=== PATIENT | male | born 1955 | race Hispanic/Latino ===

== ENCOUNTER 2022-06-27 13:47 | Emergency (ER) | payer MEDICARE, OTHER ==
[~2022-06-27] VITALS: Ht 165.1 cm; Wt 72.6 kg
[2022-06-27 14:16] LABS: BASOPHILS % (AUTO) 0.5 % (0.0-5.0); EOSINOPHILS % (AUTO) 0.3 % (0.0-8.0); HEMATOCRIT 31.2 % (42-54); LYMPHOCYTES % (AUTO) 15.1 % (21.0-51.0); MEAN CORPUSCULAR HEMOGLOBIN 29.1 pg (27.0-33.0); MEAN CORPUSCULAR HGB CONC 32.7 g/dL (32.0-36.0); MEAN CORPUSCULAR VOLUME 89.1 fL (79-99); MONOCYTES % (AUTO) 11.7 % (3.0-13.0); NEUTROPHILS % (AUTO) 66.6 % (40.0-77.0); PLATELET COUNT (AUTO) 386 K/uL (130-400); RED CELL DISTRIBUTION WIDTH 14.2 % (11.0-15.5); WHITE BLOOD COUNT (AUTO) 10.6 K/uL (4.8-10.8)
[2022-06-27 14:26] LABS: CREATININE 1.5 mg/dL (0.5-1.5); POTASSIUM 4.2 mmol/L (3.5-5.1)
[2022-06-27 14:28] LABS: INR 1.09 (0.85-1.15); PROTHROMBIN TIME 11.8 SEC (9.6-11.6)
[2022-06-27 14:30] LABS: PARTIAL THROMBOPLASTIN TIME 28.2 SEC (26.3-35.5)
[2022-06-27 14:38] LABS: ALBUMIN 2.6 g/dL (3.5-5.0); TOTAL PROTEIN, SERUM 8.2 g/dL (6.0-8.3)
[2022-06-27 15:04] LABS: APPEARANCE,URINE CLEAR (CLEAR); BILIRUBIN,URINE NEGATIVE (NEGATIVE); COLOR,URINE YELLOW (YELLOW); GLUCOSE, URINE (UA) NEGATIVE (NEGATIVE); KETONES,URINE NEGATIVE (NEGATIVE); LEUKOCYTE ESTERASE ,URINE NEGATIVE (NEGATIVE); NITRATE,URINE NEGATIVE (NEGATIVE); OCCULT BLOOD,URINE SMALL (NEGATIVE); PH,URINE 5.5 (5.0-8.0); PROTEIN,URINE 30 mg/dL (NEGATIVE); UROBILINOGEN,URINE 0.2 mg/dL (0.2-1.0)
[2022-06-27 15:18] LABS: AMORPHOUS SEDIMENT,UR Rare /LPF (None Seen); BACTERIA,URINE Few /HPF (None Seen); RBC,URINE 0-1 /HPF (0-1); SQUAMOUS EPITHELIAL CELL,UR Rare /HPF (0-2)
[2022-06-27] MEDS ORDERED: 0.9%NACL 1000ML 1,000 ML IV ONE (16:00)
[2022-06-27] MEDS ORDERED: NAPR375T6 PO (17:53)
[2022-06-27] MEDS ORDERED: METH-662 PO (17:53)
[2022-06-27 19:06] VITALS: BP 134/88
== END 2022-06-27 19:07 | disposition home or self-care (01) ==
LOC: EDH 13:47
DX: S39.012A Strain of muscle, fascia and tendon of lower back, initial encounter (principal); E86.0 Dehydration; Z20.822 Contact with and (suspected) exposure to COVID-19; E78.00 Pure hypercholesterolemia, unspecified; I10 Essential (primary) hypertension; Z90.49 Acquired absence of other specified parts of digestive tract; Z87.440 Personal history of urinary (tract) infections; Z85.46 Personal history of malignant neoplasm of prostate; X58.XXXA Exposure to other specified factors, initial encounter; Y93.89 Activity, other specified; Y92.89 Other specified places as the place of occurrence of the external cause; Y99.8 Other external cause status
CPT/HCPCS: 99284; 96360; 72131; 87635; 96361; 82550; 84484; 80053; 85025; 85610; 85730; 87040 ×2; 87088; 87804 ×2; 83605; 81001; 36415; C9803; J7030

== ENCOUNTER 2023-07-21 16:01 | Inpatient (IN) | payer OTHER ==
[~2023-07-21] VITALS: Ht 165.1 cm; Wt 62.1 kg
[~2023-07-21 16:01] MED LIST: AMLO5TAB4 PO; ATOR40TA69 PO; BICA50TA49 PO; METO25 PO; PANT40TA PO; PERCT PO; PRED10TA23 PO; TAMS-1 PO
[2023-07-21 16:59] LABS: BASOPHILS # (AUTO) 0.02 K/uL (0.00-0.20); BASOPHILS % (AUTO) 0.2 % (0.0-5.0); EOSINOPHILS # (AUTO) 0.05 K/uL (0.00-0.70); EOSINOPHILS % (AUTO) 0.5 % (0.0-8.0); HEMATOCRIT 25.1 % (42-54); LYMPHOCYTES # (AUTO) 1.3 K/uL (1.0-4.8); LYMPHOCYTES % (AUTO) 13.3 % (21.0-51.0); MEAN CORPUSCULAR HEMOGLOBIN 28.4 pg (27.0-33.0); MEAN CORPUSCULAR HGB CONC 31.5 g/dL (32.0-36.0); MEAN CORPUSCULAR VOLUME 90.3 fL (79-99); MONOCYTES # (AUTO) 0.7 K/uL (0.1-1.0); MONOCYTES % (AUTO) 7.6 % (3.0-13.0); NEUTROPHILS % (AUTO) 74.1 % (40.0-77.0); NUCLEATED RED BLOOD CELLS 0.2 % (0.0-0.19); PLATELET COUNT (AUTO) 313 K/uL (130-400); RED BLOOD CELL COUNT(AUTO) 2.78 MIL/uL (4.50-6.20); RED CELL DISTRIBUTION WIDTH 16.7 % (11.0-15.5); WHITE BLOOD COUNT (AUTO) 9.4 K/uL (4.8-10.8)
[2023-07-21] MEDS ORDERED: LACTATED RINGERS 1000ML 1,000 ML IV ONE (17:00)
[2023-07-21] MEDS ORDERED: MORPHINE 4 MG SYG IVP ONE (17:00)
[2023-07-21] MEDS ORDERED: ONDANSETRON 4MG INJ IVP ONE (17:00)
[2023-07-21 17:16] LABS: ALBUMIN 2.7 g/dL (3.5-5.0); BILIRUBIN,TOTAL 0.4 mg/dL (0.2-1.0); TOTAL PROTEIN, SERUM 7.5 g/dL (6.0-8.3)
[2023-07-21 17:43] LABS: APPEARANCE,URINE CLEAR (CLEAR); BILIRUBIN,URINE NEGATIVE (NEGATIVE); COLOR,URINE YELLOW (YELLOW); GLUCOSE, URINE (UA) NEGATIVE (NEGATIVE); KETONES,URINE NEGATIVE (NEGATIVE); LEUKOCYTE ESTERASE ,URINE NEGATIVE Leu/uL (NEGATIVE); NITRATE,URINE NEGATIVE (NEGATIVE); OCCULT BLOOD,URINE NEGATIVE (NEGATIVE); PH,URINE 5.5 (5.0-8.0); PROTEIN,URINE 50 mg/dL (NEGATIVE); UROBILINOGEN,URINE 0.2 mg/dL (0.2-1.0)
[2023-07-21 17:44] LABS: ADD UA MICROSCOPIC YES
[2023-07-21 17:46] LABS: BACTERIA,URINE RARE /HPF (None Seen); MUCUS,URINE RARE LPF (None Seen); RBC,URINE 0-1 /HPF (0-1); SQUAMOUS EPITHELIAL CELL,UR RARE /HPF (0-2)
[2023-07-21] MEDS ORDERED: IOHEXOL 350 MG/ML 100ML INFUS..BTL IV ONE (17:57)
[2023-07-21] MEDS: M.V.I. IV [ADULT] 10 ML, FOLIC ACID 1 MG, THIAMINE HCL 100 MG in 0.9%NACL 1000ML 1,000 ML IV SCH (21:08)
[2023-07-21] MEDS ORDERED: ACETAMINOPHEN 325 MG TAB PO PRN ×2 (21:30)
[2023-07-21] MEDS: ONDANSETRON 4MG INJ IV PRN (21:39)
[2023-07-21] MEDS: MORPHINE 4 MG SYG IV PRN (21:39)
[2023-07-21] MEDS: LACTATED RINGERS 1000ML 1,000 ML IV SCH (21:40)
[2023-07-21 23:55] VITALS: BP 166/102; PULSE 123; RESP 20
[2023-07-22] VITALS (8 sets, daily range): BP systolic 134–233; BP diastolic 81–132; PULSE 126–163; RESP 20; O2SAT 99
[2023-07-22] MEDS: MORPHINE 2 MG SYG IV PRN ×2 (01:35→15:56)
[2023-07-22] MEDS ORDERED: PRED5TAB44 PO (02:33)
[2023-07-22] MEDS ORDERED: ENZA80TA PO (02:33)
[2023-07-22] MEDS ORDERED: OXYC-26 PO (02:33)
[2023-07-22] MEDS ORDERED: MORP20SO37 PO (02:33)
[2023-07-22] MEDS ORDERED: METO25TA6 PO (02:33)
[2023-07-22] MEDS: MORPHINE 4 MG SYG IV PRN ×2 (03:33→09:52)
[2023-07-22 05:36] LABS: BASOPHILS # (AUTO) 0.02 K/uL (0.00-0.20); BASOPHILS % (AUTO) 0.2 % (0.0-5.0); EOSINOPHILS # (AUTO) 0.08 K/uL (0.00-0.70); HEMATOCRIT 23.8 % (42-54); IMMATURE GRANULOCYTE ABSOLUTE 0.39 K/uL (0-1); LYMPHOCYTES # (AUTO) 1.2 K/uL (1.0-4.8); LYMPHOCYTES % (AUTO) 14.9 % (21.0-51.0); MEAN CORPUSCULAR HEMOGLOBIN 28.6 pg (27.0-33.0); MEAN CORPUSCULAR HGB CONC 30.3 g/dL (32.0-36.0); MEAN CORPUSCULAR VOLUME 94.4 fL (79-99); MONOCYTES # (AUTO) 0.7 K/uL (0.1-1.0); MONOCYTES % (AUTO) 8.3 % (3.0-13.0); NEUTROPHILS # (AUTO) 5.7 K/uL (1.8-7.7); NEUTROPHILS % (AUTO) 70.8 % (40.0-77.0); PLATELET COUNT (AUTO) 231 K/uL (130-400); RED BLOOD CELL COUNT(AUTO) 2.52 MIL/uL (4.50-6.20); RED CELL DISTRIBUTION WIDTH 16.5 % (11.0-15.5); WHITE BLOOD COUNT (AUTO) 8.1 K/uL (4.8-10.8)
[2023-07-22 05:56] LABS: CREATININE 0.7 mg/dL (0.5-1.5); MAGNESIUM 1.9 mg/dL (1.80-2.40); PHOSPHORUS 3.7 mg/dL (2.5-4.9); POTASSIUM 4.9 mmol/L (3.5-5.1)
[2023-07-22] MEDS ORDERED: ENOXAPARIN SODIUM 40 MG/0.4 ML SYRINGE SQ SCH (09:00)
[2023-07-22] MEDS: FAMOTIDINE 20MG TAB PO SCH (09:51)
[2023-07-22] MEDS: LACTATED RINGERS 1000ML 1,000 ML IV SCH (10:50)
[2023-07-22] MEDS: M.V.I. IV [ADULT] 10 ML, FOLIC ACID 1 MG, THIAMINE HCL 100 MG in 0.9%NACL 1000ML 1,000 ML IV SCH (11:22)
[2023-07-22] MEDS ORDERED: HYDROMORPHONE 1 MG INJ IVP ONE (16:30)
[2023-07-22] MEDS: ONDANSETRON 4MG INJ IV PRN ×2 (16:57→20:17)
[2023-07-22] MEDS ORDERED: M.V.I. IV [ADULT] 10 ML, FOLIC ACID 1 MG, THIAMINE HCL 100 MG in 0.9%NACL 1000ML 1,000 ML IV SCH (17:00)
[2023-07-22] MEDS ORDERED: FENTANYL 50 MCG/HR PATCH TD SCH (18:30)
[2023-07-22] MEDS ORDERED: IOHEXOL-350 75 ML VIAL IV ONE (19:25)
[2023-07-22] MEDS: METOPROLOL TARTRATE 25 MG TAB PO SCH (20:17)
[2023-07-22] MEDS: HYDROMORPHONE 1 MG INJ IVP PRN (20:18)
[2023-07-22] MEDS ORDERED: PREDNISONE 5 MG TABLET PO SCH (21:00)
[2023-07-22] MEDS ORDERED: NON-FORMULARY MEDICATION 1 EACH (Prednisone 5 MG) PO SCH (21:00)
[2023-07-22] MEDS: DEXAMETHASONE SOD PHOSPHATE 4 MG/ML 1ML VIAL IV SCH (21:43)
[2023-07-23] VITALS (7 sets, daily range): BP systolic 137–170; BP diastolic 88–114; PULSE 113–125; RESP 19–20; O2SAT 99
[2023-07-23] MEDS: LACTATED RINGERS 1000ML 1,000 ML IV SCH (00:10)
[2023-07-23] MEDS: HYDROMORPHONE 1 MG INJ IVP PRN ×6 (00:14→23:21)
[2023-07-23 05:28] LABS: HEMATOCRIT 23.3 % (42-54); MEAN CORPUSCULAR HEMOGLOBIN 28.5 pg (27.0-33.0); MEAN CORPUSCULAR HGB CONC 30.5 g/dL (32.0-36.0); MEAN CORPUSCULAR VOLUME 93.6 fL (79-99); RED BLOOD CELL COUNT(AUTO) 2.49 MIL/uL (4.50-6.20); RED CELL DISTRIBUTION WIDTH 16.8 % (11.0-15.5); WHITE BLOOD COUNT (AUTO) 8.5 K/uL (4.8-10.8)
[2023-07-23 05:43] LABS: % IRON SATURATION 30.4 % (30-44)
[2023-07-23] MEDS: DEXAMETHASONE SOD PHOSPHATE 4 MG/ML 1ML VIAL IV SCH ×3 (05:53→20:54)
[2023-07-23 06:44] LABS: ALBUMIN 2.1 g/dL (3.5-5.0); BILIRUBIN,TOTAL 0.4 mg/dL (0.2-1.0); CREATININE 0.7 mg/dL (0.5-1.5); POTASSIUM 4.1 mmol/L (3.5-5.1); THYROID STIMULATING HORMONE 1.61 uIU/mL (0.36-3.74)
[2023-07-23] MEDS: FAMOTIDINE 20MG TAB PO SCH (08:28)
[2023-07-23] MEDS: POLYETHYLENE GLYCOL 3350 17 GM POWD.PACK PO SCH (08:28)
[2023-07-23] MEDS: METOPROLOL TARTRATE 25 MG TAB PO SCH ×2 (08:28→20:53)
[2023-07-23] MEDS ORDERED: HYDROMORPHONE 1 MG INJ IVP ONE (10:00)
[2023-07-24] VITALS (7 sets, daily range): BP systolic 152–182; BP diastolic 97–119; PULSE 106–122; RESP 18–20; O2SAT 99
[2023-07-24] MEDS: LABETALOL 20MG SYG IV PRN ×3 (00:23→23:52)
[2023-07-24] MEDS: HYDROMORPHONE 1 MG INJ IVP PRN ×5 (03:59→20:30)
[2023-07-24 04:10] LABS: BASOPHILS # (AUTO) 0.02 K/uL (0.00-0.20); BASOPHILS % (AUTO) 0.2 % (0.0-5.0); EOSINOPHILS # (AUTO) 0.01 K/uL (0.00-0.70); EOSINOPHILS % (AUTO) 0.1 % (0.0-8.0); HEMATOCRIT 24.2 % (42-54); IMMATURE GRANULOCYTE ABSOLUTE 0.92 K/uL (0-1); LYMPHOCYTES # (AUTO) 1.4 K/uL (1.0-4.8); LYMPHOCYTES % (AUTO) 13.8 % (21.0-51.0); MEAN CORPUSCULAR HEMOGLOBIN 28.8 pg (27.0-33.0); MEAN CORPUSCULAR HGB CONC 31.4 g/dL (32.0-36.0); MEAN CORPUSCULAR VOLUME 91.7 fL (79-99); MONOCYTES # (AUTO) 0.8 K/uL (0.1-1.0); MONOCYTES % (AUTO) 7.5 % (3.0-13.0); NEUTROPHILS # (AUTO) 7.2 K/uL (1.8-7.7); NEUTROPHILS % (AUTO) 69.6 % (40.0-77.0); NUCLEATED RED BLOOD CELLS 0.3 % (0.0-0.19); PLATELET COUNT (AUTO) 303 K/uL (130-400); RED BLOOD CELL COUNT(AUTO) 2.64 MIL/uL (4.50-6.20); RED CELL DISTRIBUTION WIDTH 16.5 % (11.0-15.5); WHITE BLOOD COUNT (AUTO) 10.4 K/uL (4.8-10.8)
[2023-07-24 04:18] LABS: CREATININE 0.7 mg/dL (0.5-1.5); POTASSIUM 4.1 mmol/L (3.5-5.1)
[2023-07-24] MEDS: DEXAMETHASONE SOD PHOSPHATE 4 MG/ML 1ML VIAL IV SCH ×3 (06:06→20:29)
[2023-07-24] MEDS: METOPROLOL TARTRATE 25 MG TAB PO SCH ×2 (08:43→20:29)
[2023-07-24] MEDS: POLYETHYLENE GLYCOL 3350 17 GM POWD.PACK PO SCH (08:43)
[2023-07-24] MEDS: FAMOTIDINE 20MG TAB PO SCH (08:43)
[2023-07-24] MEDS: 0.9%NACL 1000ML 1,000 ML IV SCH (16:09)
[2023-07-25] VITALS (9 sets, daily range): BP systolic 147–188; BP diastolic 81–126; PULSE 104–129; RESP 14–20; O2SAT 93–96
[2023-07-25] MEDS: HYDROMORPHONE 1 MG INJ IVP PRN ×6 (00:52→22:05)
[2023-07-25] MEDS ORDERED: HYDRALAZINE 20MG/ML VIAL IV ONE (02:30)
[2023-07-25] MEDS: 0.9%NACL 1000ML 1,000 ML IV SCH ×2 (04:50→22:12)
[2023-07-25 04:57] LABS: BASOPHILS # (AUTO) 0.04 K/uL (0.00-0.20); BASOPHILS % (AUTO) 0.3 % (0.0-5.0); EOSINOPHILS # (AUTO) 0.02 K/uL (0.00-0.70); EOSINOPHILS % (AUTO) 0.2 % (0.0-8.0); HEMATOCRIT 26.5 % (42-54); IMMATURE GRANULOCYTE ABSOLUTE 1.29 K/uL (0-1); LYMPHOCYTES # (AUTO) 1.7 K/uL (1.0-4.8); LYMPHOCYTES % (AUTO) 13.4 % (21.0-51.0); MEAN CORPUSCULAR HEMOGLOBIN 28.2 pg (27.0-33.0); MEAN CORPUSCULAR HGB CONC 30.6 g/dL (32.0-36.0); MEAN CORPUSCULAR VOLUME 92.3 fL (79-99); MONOCYTES # (AUTO) 0.9 K/uL (0.1-1.0); MONOCYTES % (AUTO) 7.3 % (3.0-13.0); NEUTROPHILS # (AUTO) 8.7 K/uL (1.8-7.7); NEUTROPHILS % (AUTO) 68.6 % (40.0-77.0); NUCLEATED RED BLOOD CELLS 0.9 % (0.0-0.19); PLATELET COUNT (AUTO) 313 K/uL (130-400); RED BLOOD CELL COUNT(AUTO) 2.87 MIL/uL (4.50-6.20); RED CELL DISTRIBUTION WIDTH 16.6 % (11.0-15.5); WHITE BLOOD COUNT (AUTO) 12.6 K/uL (4.8-10.8)
[2023-07-25 05:11] LABS: CREATININE 0.7 mg/dL (0.5-1.5); POTASSIUM 4.1 mmol/L (3.5-5.1)
[2023-07-25] MEDS: DEXAMETHASONE SOD PHOSPHATE 4 MG/ML 1ML VIAL IV SCH ×3 (05:16→22:14)
[2023-07-25] MEDS ORDERED: FENTANYL 75 MCG/HR PATCH TD SCH (10:00)
[2023-07-25] MEDS: FERROUS SULFATE 325 MG TABLET.DR PO SCH (10:31)
[2023-07-25] MEDS: METOPROLOL TARTRATE 25 MG TAB PO SCH ×2 (10:31→22:04)
[2023-07-25] MEDS: FAMOTIDINE 20MG TAB PO SCH (10:31)
[2023-07-25] MEDS: POLYETHYLENE GLYCOL 3350 17 GM POWD.PACK PO SCH (10:34)
[2023-07-25] MEDS ORDERED: GADOTERATE MEGLUMINE 10 MMOL/20 ML VIAL IV ONE (15:16)
[2023-07-25] MEDS: LABETALOL 20MG SYG IV PRN (22:06)
[2023-07-26 04:10] VITALS: RESP 22
[2023-07-26] MEDS: LABETALOL 20MG SYG IV PRN (04:29)
[2023-07-26] MEDS: HYDROMORPHONE 1 MG INJ IVP PRN ×3 (04:29→17:44)
[2023-07-26] MEDS: DEXAMETHASONE SOD PHOSPHATE 4 MG/ML 1ML VIAL IV SCH ×2 (06:12→13:59)
[2023-07-26] MEDS: 0.9%NACL 1000ML 1,000 ML IV SCH (06:16)
[2023-07-26 06:41] LABS: MEAN CORPUSCULAR HEMOGLOBIN 28.8 pg (27.0-33.0); MEAN CORPUSCULAR HGB CONC 31.2 g/dL (32.0-36.0); MEAN CORPUSCULAR VOLUME 92.5 fL (79-99); NUCLEATED RED BLOOD CELLS 1.4 % (0.0-0.19); RED BLOOD CELL COUNT(AUTO) 2.81 MIL/uL (4.50-6.20); WHITE BLOOD COUNT (AUTO) 12.5 K/uL (4.8-10.8)
[2023-07-26 06:49] LABS: ALBUMIN 2.4 g/dL (3.5-5.0); BILIRUBIN,TOTAL 0.3 mg/dL (0.2-1.0); CREATININE 0.7 mg/dL (0.5-1.5); POTASSIUM 5.1 mmol/L (3.5-5.1)
[2023-07-26 08:00] VITALS: BP 154/102; PULSE 97; RESP 20; O2SAT 97
[2023-07-26] MEDS: FERROUS SULFATE 325 MG TABLET.DR PO SCH (09:00)
[2023-07-26] MEDS: POLYETHYLENE GLYCOL 3350 17 GM POWD.PACK PO SCH (11:12)
[2023-07-26] MEDS: FAMOTIDINE 20MG TAB PO SCH (11:12)
[2023-07-26] MEDS: METOPROLOL TARTRATE 25 MG TAB PO SCH (11:12)
[2023-07-26 12:00] VITALS: BP 162/106; PULSE 105; RESP 18
[2023-07-26 16:00] VITALS: BP 150/97; PULSE 109; RESP 18
== END 2023-07-26 20:05 | disposition hospice, inpatient (51) | DRG 543 ==
LOC: EDH 16:01 → EDHIP 21:24 → 3DH 23:50
PROVIDERS: ADMIT Internal Medicine; ATTEND Internal Medicine
DX: C79.51 Secondary malignant neoplasm of bone (principal); C78.7 Secondary malignant neoplasm of liver and intrahepatic bile duct; E87.1 Hypo-osmolality and hyponatremia; T45.1X5A Adverse effect of antineoplastic and immunosuppressive drugs, initial encounter; C61 Malignant neoplasm of prostate; D63.0 Anemia in neoplastic disease; D64.81 Anemia due to antineoplastic chemotherapy; G89.3 Neoplasm related pain (acute) (chronic); F17.210 Nicotine dependence, cigarettes, uncomplicated; I10 Essential (primary) hypertension; Z85.46 Personal history of malignant neoplasm of prostate; Z86.73 Personal history of transient ischemic attack (TIA), and cerebral infarction without residual deficits
CPT/HCPCS: 36415; 72128; 72129; 72131; 72157; 72158; 74177; 80048; 80053; 81001; 82270; 83540; 83550; 83690; 83735; 84100; 84443; 85025; 85027; 93005; G0378; J0360; J1100; J1170; J1650; J2270; J2405; J3411; J3490; J7030; Q9967; A9575